=== PATIENT | male | born 2000 | race Two or more races ===

== ENCOUNTER → 2022-07-22 | Emergency (ER) | payer OTHER ==
[~2022-07-22] VITALS: Ht 180.3 cm; Wt 71.7 kg
== END | disposition home or self-care (01) ==
LOC: ER 10:24
DX: S61.223A Laceration with foreign body of left middle finger without damage to nail, initial encounter (principal); W26.2XXA Contact with edge of stiff paper, initial encounter; Y93.9 Activity, unspecified; Y92.019 Unspecified place in single-family (private) house as the place of occurrence of the external cause; Z88.6 Allergy status to analgesic agent